=== PATIENT | female | born 1935 | race Caucasian/White ===

== ENCOUNTER 2018-08-12 10:50 | Emergency (ER) | payer MEDICARE, OTHER ==
--- NOTE | 2018-08-12 11:47 | PDOC ---
History of Present Illness - General Chief Complaint: Pain Stated Complaint: HIP PAIN Time Seen by Provider: 08/12/18 11:15 History Source: Patient, Family (son) Exam Limitations: Language Barrier - History of Present Illness Initial Comments: 08/12/18 11:41 Pt is an 83yo F with PMH of Dementia, GERD HLD presenting to ED with son for bilateral hip pain. Pt fell 1 month ago and was found to have "a micro fracture " on the R hip. Pt was sent to [facility] for rehab for 3 weeks. She returned from rehab and per son, pt has not had a bowel movement since Saturday. Per son, pt complains of back pain when she is on the the toilet and is afraid to get up. She has been in bed since Saturday. Per son, pt is also urinating more frequently. Pt states the pain is mainly in the hips and goes down the legs bilaterally. Denies numbness/tingling, incontinence, fevers, chills, abdominal pain, n/v, headaches, chest pain, sob, cough. She takes 1 Percocet daily PMD: Bhatt PMH: see hpi PSH: knee surgery Meds: donepazil, percocet, tylenol, see med rec Allergies: nkda Past History - Past Medical History Allergies/Adverse Reactions: Allergies Allergy/AdvReac Type Severity Reaction Status Date / Time No Known Allergies Allergy Verified 08/12/18 13:04 Home Medications: Ambulatory Orders Lidocaine 5% Patch [Lidoderm Patch -] 1 patch TP DAILY #7 patch 08/12/18 Cancer: Yes (COLON) COPD: No Other medical history: ARTHRITIS - Suicide/Smoking/Psychosocial Hx Smoking History: Never smoked Have you smoked in the past 12 months: No Information on smoking cessation initiated: No Hx Alcohol Use: No Drug/Substance Use Hx: No Review of Systems - Review of Systems Constitutional: No: Chills, Fever, Weakness HEENTM: No: Symptoms Reported Respiratory: No: Symptoms reported Cardiac (ROS): No: Symptoms Reported ABD/GI: No: Symptoms Reported : Yes: See HPI, Frequency. No: Flank Pain, Hematuria Musculoskeletal: Yes: See HPI, Joint Pain (hip pain), Muscle Pain Integumentary: No: Symptoms Reported Neurological: No: Numbness, Tingling, Weakness, Ataxia *Physical Exam - Vital Signs Last Vital Signs Temp Pulse Resp BP Pulse Ox 97.8 F 68 18 165/73 100 08/12/18 11:21 08/12/18 11:21 08/12/18 11:21 08/12/18 11:21 08/12/18 11:21 - Physical Exam General Appearance: Yes: Nourished, Appropriately Dressed, Other (lying in bed comfortably). No: Apparent Distress HEENT: positive: EOMI, KALEB Neck: positive: Trachea midline, Supple. negative: Lymphadenopathy (R), Lymphadenopathy (L) Respiratory/Chest: positive: Lungs Clear, Normal Breath Sounds Cardiovascular: positive: Regular Rhythm, Regular Rate, S1, S2. negative: JVD, Murmur Vascular Pulses: Carotid (R): 2+, Carotid (L): 2+, Dorsalis-Pedis (R): 2+, Doralis-Pedis (L): 2+ Gastrointestinal/Abdominal: positive: Normal Bowel Sounds, Soft. negative: Tender Musculoskeletal: positive: Decreased Range of Motion (full passive ROM. Pt has limited active ROM), Other (pain with external rotation of L hip. No pain with passive ROM of R hip). negative: CVA Tenderness, Muscle Spasm, Vertebral Tenderness Extremity: positive: Pelvis Stable. negative: Calf Tenderness Integumentary: positive: Normal Color, Dry, Warm Neurologic: positive: livestock nutritionist II-XII NML intact, Fully Oriented, Alert, Normal Mood/ Affect, Normal Response, Motor Strength 5/5. negative: Numbness, Sensory Deficit Medical Decision Making - Medical Decision Making 08/12/18 11:46 Pt is an 83yo F with PMH of Dementia, GERD HLD presenting to ED with son for bilateral hip pain. Pt fell 1 month ago and was found to have "a micro fracture " on the R hip. Pt was sent to [facility] for rehab for 3 weeks. She returned from rehab and per son, pt has not had a bowel movement since Saturday. Per son, pt complains of back pain when she is on the the toilet and is afraid to get up. She has been in bed since Saturday. Per son, pt is also urinating more frequently. Pt states the pain is mainly in the hips and goes down the legs bilaterally. Denies numbness/tingling, incontinence, fevers, chills, abdominal pain, n/v, headaches, chest pain, sob, cough. She takes 1 Percocet daily Vitals: wnl PE: strength 5/5, reflexes 2+. pelvis stable, no vertebral tenderness? ddx includes but not limited to fracture, dislocation, pyelonephritis, uti, cauda equina low suspicion for cauda equina at this time. pt denies groin anesthesia, no back pain. Mainly afraid to ambulate due to pain -UA (for frequency) -lidoderm, tylenol -hip xray 08/12/18 16:06 hip xray shows fracture of R inferior and superior pubic rami. UA negative for infection Pt feeling a bit better after lidoderm patch. stable for dc home. given instructions about bed rest. rx for lidoderm patch. Ortho f/u and pmd f/u. arranging transportation home. *DC/Admit/Observation/Transfer Diagnosis at time of Disposition: Pubic ramus fracture Qualifiers: Encounter type: subsequent encounter Fracture type: closed Laterality: right Fracture healing: with delayed healing Qualified Code(s): S32.591G - Other specified fracture of right pubis, subsequent encounter for fracture with delayed healing - Discharge Dispostion Disposition: HOME Condition at time of disposition: Good Decision to Admit order: No - Prescriptions Prescriptions: Lidocaine 5% Patch [Lidoderm Patch -] 1 patch TP DAILY #7 patch - Referrals Referrals: Jameel Bhatt [Primary Care Provider] - Hussein Palencia MD [Staff Physician] - - Patient Instructions Printed Discharge Instructions: DI for Pelvic Fracture Additional Instructions: You were seen in the emergency room today for hip pain. the xray shows a fracture in the pelvis. A prescription for Lidoderm patch was sent to your pharmacy. Please use as directed. Apply one patch and leave it on for 12 hours then take it off and wait 12 hours to apply a new one. You need bed rest and pain control. Bear weight as tolerated. Please make an appointment with an orthopedist this week. The information is provided below. You should also make an appointment with Dr. Bhatt this week as well. Come back to the emergency room if pain gets worse, you have numbness or tingling in the legs, you are unable to move your legs at all or if any new concerning symptom develops. Thank you - Post Discharge Activity
[2018-08-12 11:48] VITALS: BP 165/73; PULSE 68; TEMP 97.8; BMI 21.2
--- NOTE | 2018-08-12 11:57 | PDOC ---
Attending Attestation - Resident Resident Name: Greta Gonzalez - ED Attending Attestation I have performed the following: I have examined & evaluated the patient, The case was reviewed & discussed with the resident, I agree w/resident's findings & plan - HPI HPI: 08/12/18 12:03 83yo F with PMH of Dementia, GERD HLD presenting to ED with son for bilateral hip pain radiating down bilateral legs, also lower back pain +constipation 2-3 days. s/p mechanical fell 1 month ago and was found to have "a micro fracture" on the R hip at [facility], sent to [facility] for rehab x 3 weeks and has since been home.. Per son, she is fearful of getting up from toilet due to lower back pain. No new trauma or falls. She has remained in bed x 2-3 days. Usually takes percocet daily for her chronic back/hip pains. Denies numbness/tingling, incontinence, fevers, chills, abdominal pain, n/v, headaches, chest pain, sob. - Physicial Exam PE: 08/12/18 13:02 General: NAD, turned in bed comfortable Abdomen: soft nontender, obese Vascular: 2+ DP pulses symmetric and equal. Back: no midline tenderness, no stepoffs, FROM; bilateral paravertebral lumbar TTP with palpation, +bilateral hip tenderness, but ROM intact, turned to the side in no acute distress Focused MSK/Neuro Exam notable for soft compartments, Cap refill <2 sec. Proximal and distal strength 5/5, cream buyer strength 5/5 - equal and symmetric. Plantar flexion and dorsiflexion 5/5. FROM. Sensation grossly intact to light touch. No calf tenderness. Skin: color normal color, warm and well perfused. - Medical Decision Making 08/12/18 14:09 hpi as documented VS reviewed wnl UA unremarkable, no s/s infection, f/u cultures. no new trauma. pelvic xray with right pubic ramus fx, likely chronic given recent trauma and fall and extremity injury from rehab. bed rest, ortho followup, analgesia, PMD and orthopedics followup as outpatient.
[2018-08-12] MEDS ORDERED: ACETAMINOPHEN 325 MG TABLET (FP) PO ONE (12:00)
[2018-08-12] MEDS ORDERED: LIDOCAINE 5% TOPICAL PATCH TP ONE (12:00)
[2018-08-12 12:50] LABS: EPI CELLS 8.7 /HPF (0-5); URINE APPEARANCE CLEAR; URINE BACTERIA 56.6 /hpf (NEGATIVE); URINE BILIRUBIN NEGATIVE (NEGATIVE); URINE CASTS 7 /hpf (0-8); URINE COLOR YELLOW; URINE GLUCOSE (UA) NEGATIVE (NEGATIVE); URINE KETONE NEGATIVE (NEGATIVE); URINE LEUK ESTERASE 2+ (NEGATIVE); URINE NITRITE NEGATIVE (NEGATIVE); URINE PROTEIN NEGATIVE (NEGATIVE); URINE UROBILINOGEN 0.2 mg/dL (0.2-1.0); URINE WBC 2 /hpf (0-5)
[2018-08-12] MEDS ORDERED: CYCLOBENZAPRINE HCL 10 MG TABLET (FP) PO ONE (13:01)
[2018-08-12] MEDS ORDERED: ACETAMINOPHEN 325 MG TABLET (FP) ONE (13:07)
[2018-08-12] MEDS ORDERED: CYCLOBENZAPRINE HCL 10 MG TABLET (FP) ONE (13:07)
[2018-08-12 13:30] LABS: URINE CRYSTALS NONE SEEN /hpf; URINE RBC 7.4 /hpf (0-4)
[2018-08-12] MEDS ORDERED: LIDOCAINE PATCH REMOVAL MC ONE (22:00)
== END 2018-08-12 18:58 | disposition home or self-care (01) ==
LOC: JER 10:50
DX: S32.511G Fracture of superior rim of right pubis, subsequent encounter for fracture with delayed healing (principal); Z91.81 History of falling; E78.5 Hyperlipidemia, unspecified; K21.9 Gastro-esophageal reflux disease without esophagitis; F03.90 Unspecified dementia, unspecified severity, without behavioral disturbance, psychotic disturbance, mood disturbance, and anxiety; W19.XXXD Unspecified fall, subsequent encounter
CPT/HCPCS: 73523-TC-FY; 81003; 87086; 99281-25